=== PATIENT | male | born 1950 | race Caucasian/White ===

== ENCOUNTER → 2016-06-07 | Outpatient (CLI) | payer BC ==
[~2016-06-07] MED LIST: ALDACTONE25 MG PO; BENICAR PO; BENICAR20 MG PO; CATAPRES-TTS-20.2 MG; COATED ASPIRIN325 M1 PO; DIOVAN HCT 160-1 TAB PO; DIOVAN PO; INSPRA25 MG PO; K-DUR20 ME1 PO; LEXAPRO PO; LORTAB 7.51 TAB DOB; PANTOPRAZOLE SO40 MG PO; PAXIL PO; PHENERGAN25 M1 DOB; POTASSIUM PO; SULAR PO; SULAR25.5 MG PO; TOPROL XL PO; TOPROL XL100 MG PO; TOPROL XL200 MG PO
--- NOTE | ~2016-06-07 | CT2 ---
[facility] A Service of [facility] RADIOLOGY TEXT RESULTS PATIENT: [facility]AL[facility] MANNING [facility] UN[facility] #: [id number] AGE: [address]: Thony Santiago MD SEX: M ORDER DR: [id number] [facility]. [place], [place] [address] [id number] O MR#: [id number] Acc #: [id number] NAME: TALIA MANNING : 1950 SEX: M STUDY DATE/TIME: 06/07/2016 13:43 UNIT: [facility] ROOM: STUDY DESCRIPTION: CT Abd and Pelv W Cont Attending Physician: Ana Laura Santiago M.D. Referring Physician: Ana Laura Santiago M.D. Ordering Physician: Ana Laura Santiago M.D. Primary Care Physician: Marivel Gloria M.D. MEDICAL IMAGING REPORT This report is preliminary unless electronic signature is present EXAM CT of the abdomen and pelvis with and without contrast. DATE OF EXAM 06/07/2016 INDICATIONS 65-year-old male with hypertension, proteinuria, hematuria since March. TECHNIQUE CT of the abdomen and pelvis was performed before and after the administration of IV contrast using a multiphase renal protocol. Coronal and sagittal reformatted images were obtained. NOTE: This CT exam was performed with one or more of the following radiation dose reduction techniques: automatic exposure control, adjustment of mA and/or kV according to patient size, and iterative reconstruction. COMPARISON STUDIES 09/17/2008 FINDINGS The lung bases are clear. Scattered tiny cysts in the liver. Gallbladder and spleen are unremarkable. Noncontrast evaluation of the kidneys demonstrates no evidence of kidney stone. Following the administration of contrast, both kidneys demonstrate symmetric enhancement and excretion of contrast without evidence of hydronephrosis. There is a small parapelvic cyst within the left kidney. There is no evidence for solid renal mass. The adrenal glands and pancreas are unremarkable. PELVIS: There is thickening of the urinary bladder, but no adjacent stranding. There is a small urinary bladder diverticulum. [facility] A Service of [facility] RADIOLOGY TEXT RESULTS PATIENT: TALIA MANNING LOCATION: [facility] : 54 UNIT #: [id number] AGE: [address]: Thony Santiago MD SEX: M ORDER DR: Prostatomegaly. Bladder thickening may be due to muscular hypertrophy due to enlarged prostate. There also is a larger diverticulum at the dome of the bladder with a very narrow neck measuring about 4.1 x 3.2 cm. There is an adjacent tiny diverticulum to the right of the large diverticulum. Colon unremarkable. No free fluid. Normal appendix. Bone windows demonstrate degenerative change of the lumbar spine. IMPRESSION 1. No evidence of solid renal mass. 2. No evidence of renal stone or hydronephrosis. 3. Multiple urinary bladder diverticula including a large diverticulum at the dome of the bladder measuring about 4.2 x 3.2 cm. 4. Generalized diffuse bladder wall thickening. This may indicate bladder wall hypertrophy as the patient does have prostatic enlargement. Dictated by... Eusebio Levy M.D. THIS IS AN ELECTRONICALLY VERIFIED REPORT Eusebio Levy M.D. at 06/09/2016 7:32 AM EVERT[place]/kelsie TD: 06/07/2016 21:43 JOB #: [id number] MEDICAL IMAGING REPORT COPY
[2016-06-07 13:40] LABS: ALBUMIN SERUM 4.6 g/dL (3.5-5.0); ALKALINE PHOSPHATASE 58 U/L (32-92); ALT (SGPT) 29 U/L (10-40); AST (SGOT) 30 U/L (10-42); BLOOD UREA NITROGEN 14 mg/dL (9-23); CALCIUM SERUM 8.9 mg/dL (8.4-10.2); CARBON DIOXIDE 28 mmol/L (22-31); CHLORIDE 102 mmol/L (100-111); GLOM FILT RATE Estimated ABOVE60 mL/min (>60); GLUCOSE FASTING 97 mg/dL (70-110); POTASSIUM 4.3 mmol/L (3.5-5.1); PROTEIN TOTAL SERUM 7.2 g/dL (6.0-8.3); SODIUM 136 mmol/L (135-145)
[2016-06-08 20:24] LABS: COMPLEMENT C3 111 mg/dL (90-180); COMPLEMENT C4 28 mg/dL (16-47)
[2016-06-09 14:41] LABS: ANA SCREEN Negative (Negative); MYELOPEROXIDASE AB (PNL) <1.0 AI (<1.0); PROTEINASE-3 AB (PNL) <1.0 AI (<1.0)
== END | disposition home or self-care (01) ==
LOC: CCAT 12:30
PROVIDERS: Internal Medicine Nephrology
DX: N08 Glomerular disorders in diseases classified elsewhere (principal); R31.9 Hematuria, unspecified; I10 Essential (primary) hypertension; R80.9 Proteinuria, unspecified; N32.3 Diverticulum of bladder; N32.89 Other specified disorders of bladder
CPT/HCPCS: 36415; 74177; 80053; 86021; 86038; 86039; 86160; 86334; Q9967

== ENCOUNTER → 2016-10-19 | Day surgery (SDC) | payer BC ==
--- NOTE | ~2016-10-19 | OR ---
Unit #: [id number] #: [id number] Patient: TALIA MANNING [id number] [address] [place], [place] [address] [id number] O MR#: [id number] NAME: TALIA MANNING ROOM: Date of Procedure: 10/19/2016 Admission Date: 10/19/2016 Surgeon: Jason Lake M.D. : 1950 Attending Physician: Jason Lake M.D. Primary Care Physician: Marivel Gloria M.D. OPERATIVE REPORT PREOPERATIVE DIAGNOSIS Suspicious redness in bladder diverticulum. POSTOPERATIVE DIAGNOSIS Suspicious redness in bladder diverticulum. PROCEDURE PERFORMED Cystoscopy with bladder biopsy and fulguration. ANESTHESIA General with local supplementation. INDICATIONS FOR PROCEDURE This is a 65-year-old man, was referred for diagnosis of intermittent microscopic hematuria and prostatic enlargement. He was noted to have multiple bladder diverticula on a CT scan with IV contrast from [facility], the largest being over 4 cm in the dome. Cystoscopic examination had been done in 2008 and was negative at that time. It was repeated on 10/05/2016 and the largest of 2 diverticula on the dome more on the left side was noted to be a suspicious area of redness occupying the medial aspect of the diverticulum. The patient presents today for biopsy and fulguration. He did have a urine sent for cytology/FISH which was negative for malignancy. DESCRIPTION OF PROCEDURE The patient was given preoperative antibiotics and satisfactory general anesthesia. He was positioned in dorsal lithotomy and the genitalia were prepped and draped. The 21-[place] rigid cystoscope was introduced with a 30-degree lens and video after first dilating the urethra up to 24-[place] [employer] as it did not pass readily. The urethra was noted to be normal other than mild BPH again bilobar. The bladder itself was healthy appearing with a small diverticula and mild trabeculation, normal orifices and the two larger diverticula toward the dome. The one on the right side of bladder was quite small and benign. The larger opening into the left-sided diverticulum was easily entered, confirming findings previously noted at flexible cystoscopy. I then introduced the cold cup biopsy forceps to take a superficial biopsy, which was tiny. I took a more aggressive biopsy and submitted these 2 specimens together. I then placed a 24-[place] [employer] resectoscope with a 3 mm rollerball and fulgurated the better part of the diverticulum medially at settings up to a power of 30 coagulation. The diverticulum showed no evidence of bleeding, residual, redness, or perforation. The bladder was drained. The resectoscope Unit #: [id number] #: [id number] Patient: TALIA MANNING SHAYNE removed and a Uro-jet applied to complete the procedure. Follow up in 1 week for pathology results as planned. Dictated by... Shubham Merino/ness TD: 10/20/2016 02:23 JOB #: [id number] CC: Ana Laura Santiaog M.D. OPERATIVE REPORT Page 1 of 1 X Jason Lake MD X PROCEDURE OPERATIVE NOTE
--- NOTE | ~2016-10-19 | EKG ---
PATIENT: TALIA MANNING UNIT #: [id number] Ventricular Rate: 54 BPM Atrial Rate: 54 BPM P-R Interval: 158 ms QRS Duration: 104 ms Q-T Interval: 424 ms QTC Calculation(Bezet): 402 ms P [place]: 51 degrees Calculated R [place]: -10 degrees Calculated T [place]: 22 degrees Diagnosis Line: Sinus bradycardia Diagnosis Line: Otherwise normal ECG Diagnosis Line: When compared with ECG of 07-FEB-2015 13:52, Diagnosis Line: No significant change was found Diagnosis Line: Confirmed by CHIOMA FENTON MD ([id number]) on Diagnosis Line: 10/19/2016 12:02:09 PM INTERPRETING MD: JOSSY LAUREANO
[2016-10-19 12:17] LABS: BASOPHIL% 0.8 % (0-2.5); EOSINOPHIL% 0.7 % (0.0-7.0); HEMATOCRIT 43.1 % (38.0-50.0); HEMOGLOBIN 14.8 gm/dL (13.0-16.0); LYMPHOCYTE# 1.9 X10e3 (1.0-3.5); LYMPHOCYTE% 30.7 % (17.0-45.0); MEAN CELL VOLUME 85.5 FL (83-96); MEAN CORPUSCULAR HEMOGLOBIN 29.4 PG (28-34); MEAN CORPUSCULAR HGB CONC 34.4 g/dL (30-36); MEAN PLATELET VOLUME 8.1 FL (6.5-11.5); MONOCYTE# 0.5 X10e3 (0-1.0); MONOCYTE% 8.6 % (3.0-12.0); NEUTROPHIL# 3.6 X10e3 (1.5-7.1); NEUTROPHIL% 59.2 % (40-75); RED BLOOD COUNT 5.05 X10e (3.90-5.60); RED CELL DISTRIBUTION WIDTH 13.1 % (11.0-15.5); WHITE BLOOD COUNT 6.2 X10e3 (4.0-10.5)
[2016-10-19 12:24] LABS: BUN/CREATININE RATIO 13.33; CALCIUM SERUM 8.6 mg/dL (8.4-10.2); CREATININE SERUM 0.9 mg/dL (0.6-1.4); GLOM FILT RATE Estimated 90.6 mL/min (>60); POTASSIUM 3.5 mmol/L (3.5-5.1)
[2016-10-19 12:38] LABS: DIFF IND NO; PLATELET COUNT 169 X10e3 (140-420)
== END | disposition home or self-care (01) ==
LOC: CSUR 11:15
PROVIDERS: Urology
DX: N30.91 Cystitis, unspecified with hematuria (principal); N32.3 Diverticulum of bladder; K21.9 Gastro-esophageal reflux disease without esophagitis; N40.0 Benign prostatic hyperplasia without lower urinary tract symptoms; I10 Essential (primary) hypertension; Z79.899 Other long term (current) drug therapy; Z79.52 Long term (current) use of systemic steroids; Z98.890 Other specified postprocedural states
CPT/HCPCS: 80048; 85025; 88305; 93005; J0690; J2250; J3010